=== PATIENT | male | born 1960 | race Hispanic/Latino ===

== ENCOUNTER 2016-08-14 06:25 | Emergency (ER) | payer MEDICAID ==
[~2016-08-14] VITALS: Ht 162.6 cm; Wt 72.0 kg
[2016-08-14 07:26] LABS: HEMATOCRIT 38.1 % (39.0-50.0); HEMOGLOBIN 13.4 g/dl (14.0-18.0); IMMATURE GRANULOCYTES 0.4 % (0.0-1.0); MEAN CELL VOLUME 91.8 fL CALC (80.0-100.0); MEAN CORPUSCULAR HGB 32.3 pG CALC (26.0-32.0); MEAN CORPUSCULAR HGB CONC 35.2 g/L CALC (32.0-36.0); NEUT# 3.32 thou/uL (1.82-7.42); RED BLOOD COUNT 4.15 mill/uL (4.70-6.10); RED CELL DISTRI WIDTH 11.9 % (11.5-15.5)
[2016-08-14 07:40] LABS: ALBUMIN 4.3 g/dL (3.2-5.0); ALKALINE PHOSPHATASE 54 u/l (38-126); ANION GAP 16 (6-22 (CALC)); BILIRUBIN, TOTAL 0.6 mg/dL (0.0-1.4); BUN 16 mg/dL (9-20); BUN/CREATININE RATIO 16 (12-20 (CALC)); CALCIUM 9.3 mg/dL (8.4-10.2); CARBON DIOXIDE 25 mmol/l (22-30); CHLORIDE 103 mmol/l (95-108); GFR > 60 ML/MIN (>=60 (CALC)); GFR FOR AFR.AMER. > 60 ML/MIN (>=60 (CALC)); GLUCOSE 94 mg/dL (75-110); POTASSIUM 4.3 mmol/l (3.5-5.1); SGOT/AST 31 u/l (17-59); SGPT/ALT 37 u/l (21-72); SODIUM 140 mmol/l (137-146); TOTAL PROTEIN 7.4 g/dL (6.3-8.2)
[2016-08-14 07:43] LABS: ACT PARTIAL THROMBO TIME 26.5 SECONDS (20.0-32.5); PROTHROMBIN TIME 11.1 SECONDS (9.0-12.5)
[2016-08-14] MEDS ORDERED: MIRALAX3350 N1 PO (07:48)
[2016-08-14 07:54] VITALS: BP 120/74
== END 2016-08-14 08:00 | disposition home or self-care (01) | DRG 379 ==
LOC: ED 06:25
PROVIDERS: Emergency Medicine
DX: K62.5 Hemorrhage of anus and rectum (principal); I10 Essential (primary) hypertension; K59.00 Constipation, unspecified; E78.5 Hyperlipidemia, unspecified

== ENCOUNTER 2017-03-06 15:28 | Emergency (ER) | payer OTHER ==
[~2017-03-06] VITALS: Ht 162.6 cm; Wt 74.0 kg
[~2017-03-06 15:28] MED LIST: MIRALAX3350 N1 PO
[2017-03-06] MEDS ORDERED: HYDROCO/APAP1 TA9 PO (17:58)
[2017-03-06] MEDS ORDERED: MOTRIN400 MG PO (17:58)
[2017-03-06 18:00] VITALS: BP 129/74
== END 2017-03-06 18:00 | disposition home or self-care (01) | DRG 563 ==
LOC: ED 15:28
PROC: 2W3FX1Z Immobilization of Left Hand using Splint (ICD-10-PCS; principal; 2017-03-06)
DX: S62.305A Unspecified fracture of fourth metacarpal bone, left hand, initial encounter for closed fracture (principal); S62.301A Unspecified fracture of second metacarpal bone, left hand, initial encounter for closed fracture; E78.5 Hyperlipidemia, unspecified; I10 Essential (primary) hypertension; W55.39XA Other contact with other hoof stock, initial encounter